=== PATIENT | female | born 1990 | race Two or more races ===

== ENCOUNTER 2022-03-02 07:32 | Emergency (ER) | payer BC, OTHER ==
[~2022-03-02] VITALS: Ht 149.9 cm; Wt 88.1 kg
[2022-03-02 07:59] VITALS: BP 117/49
[2022-03-02 08:10] LABS: Urine Bacteria FEW /hpf (None Seen); Urine Blood Negative /uL (Negative); Urine Mucus FEW (None Seen); Urine WBC 18 /hpf (0 - 5)
[2022-03-02] MEDS ORDERED: FERR18TA PO ×2 (08:53)
[2022-03-02] MEDS ORDERED: PREN-96 PO ×2 (08:53)
[2022-03-02] MEDS ORDERED: DOCU-94 PO ×2 (08:54)
== END 2022-03-02 08:07 | disposition home or self-care (01) ==
LOC: ER 07:32
DX: O26.893 Other specified pregnancy related conditions, third trimester (principal); R10.9 Unspecified abdominal pain; Z3A.28 28 weeks gestation of pregnancy
CPT/HCPCS: 81001

== ENCOUNTER 2022-03-02 08:03 | Observation (INO) | payer BC, OTHER ==
[2022-03-02] MEDS ORDERED: PREN-96 PO ×2 (08:53)
[2022-03-02] MEDS ORDERED: FERR18TA PO ×2 (08:53)
[2022-03-02] MEDS ORDERED: DOCU-94 PO ×2 (08:54)
== END 2022-03-02 09:24 | disposition home or self-care (01) ==
LOC: UNDOADMOB 08:03 → LDRP 08:03 → UNDODISOB 09:24
PROVIDERS: ADMIT Obstetrics & Gynecology; ATTEND Obstetrics & Gynecology
DX: O26.893 Other specified pregnancy related conditions, third trimester (principal); R10.31 Right lower quadrant pain; Z3A.28 28 weeks gestation of pregnancy
CPT/HCPCS: 59025; 81002; G0378